=== PATIENT | male | born 1965 | race Caucasian/White ===

== ENCOUNTER 2017-07-30 14:11 | Emergency (ER) | payer OTHER ==
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
[2017-07-30 15:39] LABS: Amphetamine Screen,Urine Not Detected (NotDetected); Barbiturate Screen,Urine Not Detected (NotDetected); Benzodiazepines Screen,Urine Not Detected (NotDetected); Cocaine Screen,Urine Not Detected (NotDetected); Methadone Screen, Urine Not Detected (NotDetected); Opiate Screen,Urine Not Detected (NotDetected); Oxycodone Screen, Urine Not Detected (NotDetected); Phencyclidine Screen,Urine Not Detected (NotDetected); Tricyclic Antidepressant,Urine Not Detected (NotDetected); Urn Cannabinoid Scrn Not Detected (NotDetected)
[2017-07-30 18:21] VITALS: BP 150/78; PULSE 87; RESP 16; TEMP 98.4
== END 2017-07-30 18:20 | disposition home or self-care (01) ==
LOC: EC 14:11
DX: F32.9 Major depressive disorder, single episode, unspecified (principal); R45.4 Irritability and anger; Z79.899 Other long term (current) drug therapy
CPT/HCPCS: 80306; 82075; 99284